=== PATIENT | male | born 1990 | race Two or more races ===

== ENCOUNTER 2019-04-21 14:21 | Emergency (ER) | payer SELFPAY ==
--- NOTE | 2019-04-21 15:07 | EDM.PDOC ---
ED HPI GENERAL MEDICAL PROBLEM - General Chief Complaint: Back Pain or Injury Stated Complaint: HURT TAIL BONE Time Seen by Provider: 04/21/19 15:06 Source of Information: Reports: Patient History Limitations: Reports: No Limitations - History of Present Illness INITIAL COMMENTS - FREE TEXT/NARRATIVE: 28-year-old male who reports he was driving a Bobcat at work (he works at [employer] ) at approximately 9 PM last night and the bucket hit a groove in the floor and caught stopping the Bobcat suddenly. The patient was thrown upward but caught by the safety bar and then came back down landing directly on his buttock on the seat. He had some mild pain in his tailbone area at the time but beginning at about 11 PM to midnight his pain seemed to worsen and his pain has been present since that time. He reports that the pain is a sharp and aching pain that is worse with movement and palpation. He rates the pain as a 6/10. There is no abdominal pain. And urinating okay. He had a normal bowel movement. There is no leg weakness and there is no lower back or upper/mid back pain. The pain doesn't radiate. There are no other associated signs or symptoms. There are no other modifying factors. 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 Surgical history as detailed below.) - Past Surgical History Dermatological Surgical History: Reports: Other (See Below) (Pilonidal cystectomy) Social & Family History - Tobacco Use Smoking Status *Q: Never Smoker Second Hand Smoke Exposure: No - Caffeine Use Caffeine Use: Reports: Soda Other Caffeine Use: daily - Alcohol Use Alcohol Use History: Yes Alcohol Use Frequency: Rarely - Recreational Drug Use Recreational Drug Use: No - Living Situation & Occupation Occupation: Employed (Works at [employer] ED ROS GENERAL - Review of Systems Review Of Systems: See Below Constitutional: Reports: No Symptoms HEENT: Reports: No Symptoms Respiratory: Reports: No Symptoms Cardiovascular: Reports: No Symptoms GI/Abdominal: Reports: No Symptoms : Reports: No Symptoms Musculoskeletal: Reports: Other (Tailbone pain) Skin: Reports: No Symptoms Neurological: Reports: No Symptoms Hematologic/Lymphatic: Reports: No Symptoms Immunologic: Reports: No Symptoms ED EXAM,LOWER BACK PAIN/INJURY - Physical Exam Exam: See Below Exam Limited By: No Limitations General Appearance: Alert, Mild Distress, Obese Eye Exam: Bilateral Eye: EOMI, Normal Inspection, PERRL Ears: Normal External Exam, Hearing Grossly Normal Nose: Normal Inspection, Normal Mucosa, No Blood Throat/Mouth: Normal Inspection, Normal Oropharynx, Normal Voice, No Airway Compromise Head: Atraumatic, Normocephalic Neck: Normal Inspection, Supple, Non-Tender, Full Range of Motion Respiratory/Chest: No Respiratory Distress, Lungs Clear, Normal Breath Sounds, No Accessory Muscle Use, Chest Non-Tender Cardiovascular: Normal Peripheral Pulses, Regular Rate, Rhythm, No JVD GI/Abdominal: Normal Bowel Sounds, Soft, Non-Tender, No Mass, Other (Protuberant ) Back Exam: Other (Tender over the lower sacrum and coccyx area. No crepitus. He is nontender along his lumbar and thoracic spine.) Extremities: Normal Inspection, Normal Range of Motion, Non-Tender, No Pedal Edema, Normal Capillary Refill Neurological: Alert, Normal Mood/Affect, Normal Dorsiflexion, CN II-XII Intact, Normal Plantar Flexion, No Motor/Sensory Deficits, Oriented x 3 Skin Exam: Warm, Dry, Intact, Normal Color, No Rash Course - Vital Signs Last Recorded V/S: Last Vital Signs Temp 36.6 C 04/21/19 14:55 Pulse 61 04/21/19 14:55 Resp 18 04/21/19 14:55 BP 159/94 H 04/21/19 14:55 Pulse Ox 99 04/21/19 14:55 - Orders/Labs/Meds Orders: Active Orders 24 hr Category Date Time Status Sacrum Coccyx Min 2V [CR] Stat Exams 04/21/19 15:16 Taken - Radiology Interpretation Free Text/Narrative:: Sacrum and coccyx x-rays show possible nondisplaced coccyx fracture. - Re-Assessments/Exams Free Text/Narrative Re-Assessment/Exam: 04/21/19 16:28: The x-ray of his sacrum and coccyx shows a possible nondisplaced coccyx fracture and he definitely has a contusion to this area as well. He will be able to go to work today on 04/21/2019. I did give him restrictions for the next 7 days. A copy of these are on the patient's chart. He may take Tylenol and ibuprofen as needed for pain. Departure - Departure Time of Disposition: 16:30 Disposition: Home, Self-Care 01 Condition: Good Clinical Impression: Fractured coccyx Qualifiers: Encounter type: initial encounter Fracture type: closed Qualified Code(s): S32.2XXA - Fracture of coccyx, initial encounter for closed fracture Coccygeal contusion Qualifiers: Encounter type: initial encounter Qualified Code(s): S30.0XXA - Contusion of lower back and pelvis, initial encounter - Discharge Information Instructions: Contusion, [id number], Tailbone Injury, [id number] Referrals: PCP,None [Primary Care Provider] - Forms: ED Department Discharge Additional Instructions: The x-ray of your tailbone showed a possible fracture that was nondisplaced. There is really nothing that can be done about this fracture. You may return to work today on 04/21/2019 with restrictions of no lifting more than 50 pounds and no kneeling, crawling for climbing ladders for extended periods. I have detailed your restrictions your employer. You may take Tylenol and ibuprofen as needed for pain. Use a soft pillow for comfort when sitting. Activity as tolerated otherwise. Back to the emergency department for blood in your stool, abdominal pain, weakness or any other concerning sign or symptom. - My Orders Last 24 Hours: My Active Orders 04/21/19 15:16 Sacrum Coccyx Min 2V [CR] Stat - Assessment/Plan Last 24 Hours: My Active Orders 04/21/19 15:16 Sacrum Coccyx Min 2V [CR] Stat
--- NOTE | 2019-04-23 09:50 | CR ---
INDICATION: Tailbone pain, status post injury. SACRUM AND COCCYX: Three views of the sacrum and coccyx were obtained, - no comparisons. A fracture, dislocation, or other definite bone or joint abnormality was not identified. If occult fracture site is suspected clinically, examination with CT is recommended for further evaluation - nuclear bone imaging may also be helpful. Visualization of the coccyx in the AP projection was adequate but less than ideal. Sacroiliac joints appear to be intact. MTDD
== END 2019-04-21 16:49 | disposition home or self-care (01) ==
LOC: FB.ED 14:21
DX: S32.2XXA Fracture of coccyx, initial encounter for closed fracture (principal); Y92.89 Other specified places as the place of occurrence of the external cause; V89.0XXA Person injured in unspecified motor-vehicle accident, nontraffic, initial encounter; Y99.0 Civilian activity done for income or pay
CPT/HCPCS: 72220; 99000; 99283-25

== ENCOUNTER 2022-03-28 14:08 | Emergency (ER) | payer BC, OTHER ==
[2022-03-28] MEDS ORDERED: traMADol 50 MG Tab PO STA (14:43)
[2022-03-28] MEDS ORDERED: Ibuprofen 800 MG Tab PO ONE (14:43)
== END 2022-03-28 17:35 | disposition home or self-care (01) ==
LOC: FB.ED 14:08
DX: S92.332A Displaced fracture of third metatarsal bone, left foot, initial encounter for closed fracture (principal); X50.1XXA Overexertion from prolonged static or awkward postures, initial encounter
CPT/HCPCS: 73630; 73700; 99283; A9270